=== PATIENT | female | born 2000 | race African-American/Black ===

== ENCOUNTER 2021-09-13 14:43 | Emergency (ER) | payer MEDICAID ==
[~2021-09-13] VITALS: Ht 165.1 cm; Wt 75.3 kg
[2021-09-13 19:26] VITALS: BP 102/62
[2021-09-14] MEDS ORDERED: AMOX-277 PO (15:08)
[2021-09-14] MEDS ORDERED: PRED20TA2 PO (15:08)
[2021-09-14] MEDS ORDERED: CARB6.5S44 OT (15:12)
== END 2021-09-13 20:07 | disposition left against medical advice (07) ==
LOC: ER 14:43
DX: J02.9 Acute pharyngitis, unspecified (principal); H92.01 Otalgia, right ear; Z20.822 Contact with and (suspected) exposure to COVID-19; Z53.21 Procedure and treatment not carried out due to patient leaving prior to being seen by health care provider
CPT/HCPCS: 36415; 71045

== ENCOUNTER 2021-09-14 11:59 | Emergency (ER) | payer MEDICAID ==
[~2021-09-14] VITALS: Ht 165.1 cm; Wt 72.6 kg
[2021-09-14 14:42] VITALS: BP 119/74
[2021-09-14] MEDS ORDERED: PRED20TA2 PO (15:08)
[2021-09-14] MEDS ORDERED: AMOX-277 PO (15:08)
[2021-09-14] MEDS ORDERED: CARB6.5S44 OT (15:12)
[2021-09-14] MEDS ORDERED: methylPREDNISolone SOD SUCC 125 MG/2 ML VL IM ONE (15:15)
[2021-09-14] MEDS ORDERED: cefTRIAXone SOD 1,000 MG VL IM ONE (15:15)
== END 2021-09-14 15:28 | disposition home or self-care (01) ==
LOC: ER 11:59
DX: J02.9 Acute pharyngitis, unspecified (principal); H61.23 Impacted cerumen, bilateral
CPT/HCPCS: 96372; 99284; J0696; J2930

== ENCOUNTER 2024-05-11 19:01 | Emergency (ER) | payer MEDICAID ==
[~2024-05-11] VITALS: Ht 165.1 cm; Wt 77.8 kg
[~2024-05-11 19:01] MED LIST: AMOX875T4 PO; CARB6.5S44 OT; PRED20TA2 PO
--- NOTE | 2024-05-11 19:22 | ED.PDOC ---
SEED EXPERT HPI Comments HPI: Poor Historian. 23-year-old female presents to the emergency department for vaginal spotting that did not exceed one pad. This happened today. Patient found out she is yesterday. She has history of irregular menstrual cycles and that is not know when her last menstrual cycle was. Denies any other associated symptoms. VITALS: Temp: 98.0F RR: 16 02 sat : 99 % on room air HR: 98 BP: 106/68 PMH: irregular periods PSH: eye surgery Social history: denies tobacco use, denies ETOH use, denies drug use Medications: denies, Allergies: nkda REVIEW OF SYSTEMS: CONSTITUTIONAL: Denies acute: fever, diaphoresis, chills, generalized weakness. HEAD: Denies acute: headache, photophobia Eyes: Denies acute: Double vision, vision loss, eye pain, eye discharge. EARS: Denies acute: tinnitus, hearing loss, ear discharge, ear pain, THROAT: Denies acute: sore throat, swelling, difficulty swallowing , pain with swallowing, change in voice. NECK: Denies acute: neck pain, neck swelling, stiff neck. HEART: Denies acute : chest pain, palpitations, LUNGS: Denies acute: SOB, wheezing, cough, hemoptysis ABDOMEN: Denies acute: abdominal pain, Nausea, Vomiting, diarrhea, melena , hematemesis, hematochezia SKIN: Denies acute: rash, redness, lesions, itchiness. EXTREMITIES: Denies acute: calf pain, numbness, tingling, weakness, denies pain in extremity. Denies acute: Low back pain. Neuro: Denies acute: focal neurological deficit, motor or sensory focal neurological deficit, tremors, seizure like activity, confusion, dizziness, change in mental status, loss of bowel or bladder function, cauda equina like symptoms. : Denies acute: dysuria, hematuria, flank pain, increase in urinary frequency. PSYCH: Denies acute: hallucination, suicidal ideation, homicidal ideation. FEMALE: Denies acute: , foul odor, unusual discharge. PHYSICAL EXAM: General: no acute distress, awake and alert. Head: normocephalic, atraumatic. Neck: supple, trachea is midline, no swelling. Throat: Normal phonation. Eyes:, no erythema, no purulent discharge, no proptosis, no icterus. Heart: regular rate, regular rhythm, no significant murmur appreciated. Lungs: no apparent respiratory distress, Able to speak in full sentences. No wheezing, no rhonchi, no crackles. No stridors Clear to auscultation bilaterally. Abdomen: non tender to palpation, non distended, soft, no guarding, no rebound, + bowel sounds. Neuro: Awake, Alert, oriented to name, self, situation, follows commands GCS=15. Speech is normal. Skin: no petechia, no purpura, no cyanosis, non-pale, not jaundice. Lower extremities: --no - Pitting edema no deformity, no focal swelling, no calf TTP. Makes eye contact. moves all four extremities. Face: no apparent facial droop. Ambulating in the ED independently. Chief Complaint: vaginal spotting Time Seen by MD: 19:03 Reviewed Notes: Nurses Notes Allergies: Coded Allergies: NO KNOWN ALLERGIES (Unverified , 09/13/21) Home Meds Active Scripts Carbamide Peroxide (Debrox) 6.5 % Fabiana, 5 DROP OT BID for 4 Days, #1 BOT 0 Refills Prov:KITTY NIELSON 09/14/21 Prednisone (Prednisone) 20 Mg Tab, 20 MG PO BID for 5 Days, #10 MG 0 Refills Prov:KITTY NIELSON 09/14/21 Amoxicillin & Pot Clavulanate (Amoxicillin/Potassium Cla) 875 Mg Tab, 1 TAB PO BID for 7 Days, #14 TAB 0 Refills Prov:KITTY NIELSON 09/14/21 Information Source: Patient, Friend Mode of Arrival: Ambulatory Past Medical History PAST MEDICAL HISTORY: Denies Surgical History: Denies all surgeries Family History Family History: Unknown Social History Smoker: Non-Smoker Alcohol: Denies ETOH Use Drugs: Denies Drug Use Lives In: Home Was a procedure done? Was a procedure done?: No X-Ray, Labs, Meds, VS Vital Signs Date Time Temp Pulse Resp B/P (MAP) Pulse Ox O2 Delivery O2 Flow Rate FiO2 05/11/24 19:28 98.0 98 16 106/68 (81) 99 Lab Test 05/11/24 19:35 05/11/24 00:00 Range/Units White Blood Count 5.2 4.4-10.8 10^3/uL Red Blood Count 4.55 4.0-5.20 10^6/uL Hemoglobin 12.6 12.2-16.2 g/dL Hematocrit 38.0 36.0-46.0 % Mean Corpuscular Volume 83.5 80.0-100.0 fL Mean Corpuscular Hemoglobin 27.7 L 28.0-32.0 pg Mean Corpuscular Hemoglobin Concent 33.1 32.0-36.0 g/dL Red Cell Distribution Width 13.5 11.8-14.3 % Platelet Count 214 140-450 10^3/uL Mean Platelet Volume 8.6 6.9-10.8 fL Neutrophils (%) (Auto) 54.7 37.0-80.0 % Lymphocytes (%) (Auto) 36.0 10.0-50.0 % Monocytes (%) (Auto) 8.5 0.0-12.0 % Eosinophils (%) (Auto) 0.3 0.0-7.0 % Basophils (%) (Auto) 0.5 0.0-2.0 % Neutrophils # (Auto) 2.9 1.6-8.6 10 ^3/uL Lymphocytes # (Auto) 1.9 0.4-5.4 10 ^3/uL Monocytes # (Auto) 0.4 0-1.3 10 ^3/uL Eosinophils # (Auto) 0 0-0.8 10 ^3/uL Basophils # (Auto) 0 0-0.2 10 ^3/uL Nucleated Red Blood Cells 0.2 % Sodium Level 142 136-145 mmol/L Potassium Level 4.0 3.5-5.1 mmol/L Chloride Level 110 H 98-107 mmol/L Carbon Dioxide Level 24 20-31 mmol/L Anion Gap 8 5-15 Blood Urea Nitrogen 11 9-23 mg/dL Creatinine 0.83 0.550-1.02 mg/dL Glomerular Filtration Rate Calc 102 >90 mL/min BUN/Creatinine Ratio 13.3 10.0-20.0 Serum Glucose 88 74-106 mg/dL Lactic Acid Level 1.0 0.4-2.0 mmol/L Calcium Level 10.2 8.7-10.4 mg/dL Total Bilirubin 0.4 0.2-1.0 mg/dL Aspartate Amino Transferase (AST) 16 13-40 U/L Alanine Aminotransferase (ALT) 9 7-40 U/L Alkaline Phosphatase 58 46-116 U/L Total Protein 7.1 5.7-8.2 g/dL Albumin 4.6 3.2-4.8 g/dL Lipase 40 12-53 U/L Beta HCG, Quantitative 1400.6 H 1.5-4.2 mIU/mL Urine Color Light-yellow Yellow Urine Clarity Clear Clear Urine pH 5.0 5.0-9.0 Urine Specific [place] 1.022 1.001-1.035 Urine Protein Negative Negative Urine Ketones 1+ H Negative Urine Blood Negative Negative /uL Urine Nitrite Negative Negative Urine Bilirubin Negative Negative Urine Urobilinogen Normal Negative mg/dL Urine Leukocyte Esterase Negative Negative /uL Urine RBC 1 0 - 4 /hpf Urine WBC 1 0 - 5 /hpf Urine Squamous Epithelial Cells Few <5 /hpf Urine Bacteria None seen None Seen /hpf Urine Glucose Normal Normal mg/dL [place] [id number] DIAGNOSTIC IMAGING Diagnostic Imaging Report : [id number] Signed PATIENT: EVELINA BROWN ACCT: [id number] UNIT: [id number] : 2000 LOC: ER ROOM / BED: / AGE / SEX: 23 / F ADM STATUS: REG ER SERVICE 20 ORDERING PHYSICIAN: LINDA JONES DO PROCEDURE(s): OB4US - OB ULTRASOUND COMP LESS 14WKS REASON: vag spotting ORDER NUMBER(s): [id number], ACCESSION NUMBER(s): [id number] OB ULTRASOUND <14 WEEKS: HISTORY: vag spotting TECHNIQUE: Multiple real-time grayscale sonographic images of the pelvis with duplex Doppler color flow, spectral and M-mode analysis. TRANSDUCERS: Transabdominal FINDINGS: The uterus measures 7.48 x 4.19 x 3.76 cm. There is a 0.27 cm intramural mass may represent a small fibroid. There is a 0.2 1 cm anechoic lesion in the endometrial canal this is too small to estimate gestational age recommend appropriate follow-up. Right ovary measures 3.7 by 2.6 x 3.7 cm right ovarian volume is 18.55 cc. There is a 1.4 x 2.1 x 1.2 cm complex cystic mass in the right ovary. Left ovary measures 3.1 x 1.9 by 2.5 cm. Left ovarian volume is 7.04 cc with normal Doppler color flow. There is a 0.3 x 0.19 x 0.25 cm anechoic lesion in the left ovary most likely a follicle. IMPRESSION: 1. Cystic area in the endometrial canal below range 2 estimated gestational age. There is no pole or yolk sac visualized. 2. Nabothian cysts noted in the lower uterine segment 3. Small follicle in the left ovary. No acute abnormality detected. ATED BY: BASIL WALDEN Jr., DO DICTATED DATE/TIME: 05/11/242156 SIGNED BY: BASIL WALDEN Jr., SIGNED DATE/TIME: 05/11/242156 CC: Time of 1ST Reevaluation: 22:10 (pt was made aware, pt signed AMA, left before receiving ultrasoud results) Patient Education/Counseling: Diagnosis, Treatment Family Education/Counseling: Diagnosis, Treatment Comments In the left AMA before she receives any discharge instructions or her ultrasound report. Additional Information Patient presented with the above HPI.-- vaginal spotting ---workup was initiated. patient was found with the above mentioned diagnosis. the following medications were ordered: none the following tests were ordered: OB ultrasound, transvaginal US, type and screen, UA, lipase, lactic acid, CMP, CBC, beta HCG, patient ED course and VS have been stabilized. Patient has been reassessed in the ED and remained in a stable condition. Patient has been observed in the ED adequate length of time to insure improvement/stability. Escalation of care considered: Consideration of escalation to observation or admission. patient was admitted to the medicine team for further evaluation and treatment of their presentation. Patient was discharged home in a stable condition. All the reports of any imaging studies that were ordered by myself were reviewed by myself. Departure 1 Departure Time of Disposition: 21:38 Impression: Primary Impression: Vaginal bleeding during Additional Impression: Left against medical advice Disposition: LEFT AGAINST MEDICAL ADVICE Condition: Stable Additional Instructions: Discharge instructions in case the patient returns to receive them Additional discharge instructions: You MUST follow-up with your primary care/family doctor in 1 to 2 days. If you are unable to see your primary care/family doctor, please return to our emergency room for re-assessment and re-evaluation in 1 to 2 days. Return to the emergency room here in our facility or to the nearest ER [facility] if your symptoms change or worsen. CONSULTATIONS: you MUST Follow-up for consultation as soon as possible with: Dr. EDMUNDO Almendarez doctor in 1-2 days. Please call for appointment. You MUST call the consultants office yourself to make an appointment. You may need to arrange that through your insurance and/or your primary/family doctor. If you are unable to see the health analytics consultant in 1 to 2 days, you must return to our emergency room (or any other ER of your choice) for re-assessment and re-evaluat ion. Adequate fluid hydration. Absolute pelvic rest. Repeat beta-hCG in 48-72 hours. Repeat pelvic ultrasound in 5-6 days. Below is a copy of your radiological report for follow up: [place] [address] Ph: [phone] DIAGNOSTIC IMAGING Diagnostic Imaging Report : [id number] Signed PATIENT: EVELINA BROWN ACCT: [id number] UNIT: [id number] : 2000 LOC: ER ROOM / BED: / AGE / SEX: 23 / F ADM STATUS: REG ER SERVICE 20 ORDERING PHYSICIAN: LINDA JONES DO PROCEDURE(s): OB4US - OB ULTRASOUND COMP LESS 14WKS REASON: vag spotting ORDER NUMBER(s): [id number], ACCESSION NUMBER(s): [id number] OB ULTRASOUND <14 WEEKS: HISTORY: vag spotting TECHNIQUE: Multiple real-time grayscale sonographic images of the pelvis with duplex Doppler color flow, spectral and M-mode analysis. TRANSDUCERS: Transabdominal FINDINGS: The uterus measures 7.48 x 4.19 x 3.76 cm. There is a 0.27 cm intramural mass may represent a small fibroid. There is a 0.2 1 cm anechoic lesion in the endometrial canal this is too small to estimate gestational age recommend appropriate follow-up. Right ovary measures 3.7 by 2.6 x 3.7 cm right ovarian volume is 18.55 cc. There is a 1.4 x 2.1 x 1.2 cm complex cystic mass in the right ovary. Left ovary measures 3.1 x 1.9 by 2.5 cm. Left ovarian volume is 7.04 cc with normal Doppler color flow. There is a 0.3 x 0.19 x 0.25 cm anechoic lesion in the left ovary most likely a follicle. IMPRESSION: 1. Cystic area in the endometrial canal below range 2 estimated gestational age. There is no pole or yolk sac visualized. 2. Nabothian cysts noted in the lower uterine segment 3. Small follicle in the left ovary. No acute abnormality detected. ATED BY: BASIL WALDEN Jr., DO DICTATED DATE/TIME: 05/11/242156 SIGNED BY: BASIL WALDEN Jr., SIGNED DATE/TIME: 05/11/242156 CC: Discharged With: Self Critical Care Note Critical Care Time?: No I personally scribed for LINDA JONES DO ([facility]) on 05/11/24 at 19:22. Electronically submitted by Darin Galeano ([facility] [place] I personally scribed for LINDA JONES DO ([facility]) on 05/11/24 at 21:05. Electronically submitted by Darin Galeano ([facility] [place] I personally scribed for LINDA JONES DO ([facility]) on 05/11/24 at 22:10. Electronically submitted by Darin Galeano ([facility] [place] LINDA JONES DO May 11, 2024 19:22
[2024-05-11 19:28] VITALS: BP 106/68; PULSE 98; RESP 16; O2SAT 99
[2024-05-11 19:43] LABS: Urine Bacteria None Seen /hpf (None Seen)
[2024-05-11 19:50] LABS: Basophils # (auto) 0 10 ^3/uL (0-0.2); Basophils % (auto) 0.5 % (0.0-2.0); Eosinophils # (auto) 0 10 ^3/uL (0-0.8); Eosinophils % (auto) 0.3 % (0.0-7.0); Hemoglobin 12.6 g/dL (12.2-16.2); Lymphocytes # (auto) 1.9 10 ^3/uL (0.4-5.4); Mean Corpuscular Hemoglobin 27.7 pg (28.0-32.0); Mean Corpuscular Hgb Conc. 33.1 g/dL (32.0-36.0); Mean Corpuscular Volume 83.5 fL (80.0-100.0); Monocytes # (auto) 0.4 10 ^3/uL (0-1.3); Monocytes % (auto) 8.5 % (0.0-12.0); Neutrophils # (auto) 2.9 10 ^3/uL (1.6-8.6); Neutrophils % (auto) 54.7 % (37.0-80.0); Nucleated Red Blood Cells % 0.2 %; Platelet Count (auto) 214 10^3/uL (140-450); Red Blood Cells 4.55 10^6/uL (4.0-5.20); Red Cell Distribution Width 13.5 % (11.8-14.3); White Blood Cell 5.2 10^3/uL (4.4-10.8)
[2024-05-11 19:53] LABS: Urine Blood Negative /uL (Negative); Urine Clarity Clear (Clear); Urine Color Light-Yellow (Yellow); Urine Protein, UAD Negative (Negative); Urine Specific Gravity 1.022 (1.001-1.035); Urine Squamous Epithelial Cell FEW /hpf (<5); Urine Urobilinogen Normal (Negative); Urine WBC 1 /hpf (0 - 5)
[2024-05-11 20:04] LABS: Albumin 4.6 g/dL (3.2-4.8); Alkaline Phosphatase 58 U/L (46-116); Anion Gap 8 (5-15); Aspartate Aminotransferase 16 U/L (13-40); BUN/Creatinine Ratio 13.3 (10.0-20.0); Bilirubin, Total 0.4 mg/dL (0.2-1.0); Blood Urea Nitrogen 11 mg/dL (9-23); Calcium 10.2 mg/dL (8.7-10.4); Carbon Dioxide 24 mmol/L (20-31); Glucose 88 mg/dL (74-106); Sodium 142 mmol/L (136-145)
[2024-05-11 20:05] LABS: Total Protein 7.1 g/dL (5.7-8.2)
[2024-05-11 20:10] LABS: Alanine Aminotransferase 9 U/L (7-40); Chloride 110 mmol/L (98-107)
[2024-05-11 20:28] LABS: Lipase 40 U/L (12-53)
--- NOTE | 2024-05-11 21:59 | DVH ---
OB ULTRASOUND <14 WEEKS: HISTORY: vag spotting TECHNIQUE: Multiple real-time grayscale sonographic images of the pelvis with duplex Doppler color f low, spectral and M-mode analysis. TRANSDUCERS: Transabdominal FINDINGS: The uterus measures 7.48 x 4.19 x 3.76 cm. There is a 0.27 cm intramural mass may represent a small f ibroid. There is a 0.2 1 cm anechoic lesion in the endometrial canal this is too small to estimate g estational age recommend appropriate follow-up. Right ovary measures 3.7 by 2.6 x 3.7 cm right ovarian volume is 18.55 cc. There is a 1.4 x 2.1 x 1. 2 cm complex cystic mass in the right ovary. Left ovary measures 3.1 x 1.9 by 2.5 cm. Left ovarian volume is 7.04 cc with normal Doppler color jony w. There is a 0.3 x 0.19 x 0.25 cm anechoic lesion in the left ovary most likely a follicle. IMPRESSION: 1. Cystic area in the endometrial canal below range 2 estimated gestational age. There is no po le or yolk sac visualized. 2. Nabothian cysts noted in the lower uterine segment 3. Small follicle in the left ovary. No acute abnormality detected.
== END 2024-05-12 01:28 | disposition left against medical advice (07) ==
LOC: ER 19:05
DX: O46.8X1 Other antepartum hemorrhage, first trimester (principal); R10.2 Pelvic and perineal pain; O34.41 Maternal care for other abnormalities of cervix, first trimester; N88.8 Other specified noninflammatory disorders of cervix uteri; Z3A.01 Less than 8 weeks gestation of pregnancy; Z79.52 Long term (current) use of systemic steroids
CPT/HCPCS: 36415; 76801; 76817; 80053; 81001; 83605; 83690; 84702; 85025; 86850; 86900; 86901